=== PATIENT | female | born 1960 ===

== ENCOUNTER 2017-09-19 13:36 | Emergency (ER) | payer OTHER, MEDICAID ==
[2017-09-19 13:40] VITALS: BP 138/87; PULSE 93; RESP 16; TEMP 98.5; O2SAT 100
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
== END 2017-09-19 17:10 | disposition home or self-care (01) ==
LOC: H.ER 13:36
DX: S99.911A Unspecified injury of right ankle, initial encounter (principal); V09.9XXA Pedestrian injured in unspecified transport accident, initial encounter